=== PATIENT | female | born 1955 | race Caucasian/White ===

== ENCOUNTER → 2016-11-15 17:23 | Outpatient (CLI) | payer OTHER | END | disposition home or self-care (01) | LOC: D.MAMMO 11-12 09:00 | DX: N60.22 Fibroadenosis of left breast (principal) ==

== ENCOUNTER 2017-11-29 06:53 | Emergency (ER) | payer OTHER ==
[2017-11-30 09:22] VITALS: BMI 22.0
== END 2017-11-29 08:24 | disposition home or self-care (01) ==
LOC: D.ER 06:53
DX: S39.012A Strain of muscle, fascia and tendon of lower back, initial encounter (principal); X58.XXXA Exposure to other specified factors, initial encounter; Y93.89 Activity, other specified; Y92.89 Other specified places as the place of occurrence of the external cause

== ENCOUNTER 2017-11-30 08:48 | Inpatient (IN) | payer OTHER ==
[~2017-11-30] VITALS: Ht 165.1 cm; Wt 61.8 kg
[2017-11-30] VITALS (19 sets, daily range): BP systolic 93–174; BP diastolic 38–87; Ht 165.1 cm; Wt 61.8 kg
--- NOTE | ~2017-11-30 | OP ---
PATIENT NAME: LYNDSAY LEIGH MEDICAL RECORD: [id number] :55 [id number] ADMISSION DATE:11/30/17 SURGEON: MAYNOR AL MD DATE OF OPERATION: 11/30/2017 PREOPERATIVE DIAGNOSES: Large disc herniation at C7-T1 on the left with severe degenerative disc disease and osteophyte formation and degenerative disc disease with disc herniation at C6-C7, left. PROCEDURE: LDR artificial cervical disc at C6-C7, Zavation cervical plate at C7-T1 with 4 screws, PEEK interbody cage, bone stem cell allograft, separate plate and screws was used to achieve the C7-T1 interspace. DESCRIPTION AND TECHNIQUE: After induction of general endotracheal anesthesia, the patient was positioned supine on the operating table. Neck was prepped and draped in usual sterile fashion. Fluoroscopic x-ray and freer localized the C6-C7 interspace. A transverse skin incision was carried out from the midline to the sternocleidomastoid muscle. The platysma was divided with Bovie cautery. Using blunt and sharp dissection with Metzenbaum scissors, I proceeded in an avascular plane medial to the carotid sheath. The C6-C7 interspace was identified with fluoroscopic x-ray and a spinal needle. The longus colli muscles were elevated from bodies of C6, C7 and T1, so a Zephyr distracting pins were placed in the body of C7 and T1. The annulus was incised with #11 blade. Series of curettes and pituitary rongeurs was used to remove the disc material from the disc space. Posterior longitudinal ligament was removed with Cloward rongeurs. In the left neural foramen, there was a large extruded disc fragment within the foramen compressing the left C8 nerve root. The foramen was further explored with a nerve hook with a ball tip probe. No other disc fragments were discovered. A PEEK interbody cage was placed into the space under distraction. Prior to this, it was filled with bone stem cells. Next, a separate 4-hole plate and screws was used to span the C5 and T1 interspace. Good position of the hardware was confirmed with fluoroscopic x-ray. Locking cams were tightened down over the screw heads. Next, attention was turned to the C6-C7 interspace. Zephyr pins were placed at the bodies of C6 and C7. The annulus was incised under distraction with a #11 blade and series of curettes and pituitary rongeurs were used to remove the disc material from the disc space. Dissection took place down the bony endplates with care not to interrupt any of the bony endplate. An osteophyte was drilled away posteriorly on the left with the Midas-Jeremy drill under microscope. The posterior longitudinal ligament was removed across the entire disc space. The dura was decompressed well. A medium-sized LDR anterior cervical disc was placed in the disc space under fluoroscopic control. Good position of the hardware was confirmed with fluoroscopic x-ray. Meticulous hemostasis was maintained throughout the wound. Wound was irrigated with copious amounts of Ancef irrigant solution. The platysma and subdermal layer were closed with interrupted 3-0 Vicryl suture. The skin was reapproximated with 5-0 subcuticular stitch. A Dermabond mesh was used to close the skin edges. TRANSINT:[id number] Voice Confirmation ID: [id number] DOCUMENT ID: [id number] OPERATIVE REPORT [id number] LYNDSAY LEIGH JOHN MD at 1318 CC: [id number] DICTATION DATE: 12/09/17 0904 BOND UNDERWRITER: 12/09/17 1502 DIS IN 12/01/17 [id number] [place] [id number]
[2017-11-30 09:11] LABS: BASOPHILS 0 % (0-2); EOSINOPHILS 0 % (0-7); HEMATOCRIT 42.1 % (36.0-48.0); IMMATURE GRANULOCYTES 0.3 % (0-5); LYMPHOCYTES 9.3 % (15-50); MCHC 33.3 g/dL (31.0-37.0); MCV 87.2 fL (80.0-100.0); MEAN PLATELET VOLUME 10.8 fL (7.4-10.4); MONOCYTES 5.3 % (2-11); NEUTROPHILS 85.1 % (40-80); PLATELET COUNT 247 10x3/uL (130-400); RBC 4.83 10x6/uL (4.00-5.40); RDW 14.1 % (11.5-14.5); WBC 12.5 10x3/uL (4.8-10.8)
[2017-11-30 09:20] LABS: ANION GAP 16.9 mmol/L (8-16); CALCIUM 9.7 mg/dL (8.5-10.1); CARBON DIOXIDE 26.1 mmol/L (21.0-32.0)
[2017-11-30 12:55] LABS: APPEARANCE CLEAR (CLEAR); BILIRUBIN NEGATIVE (NEGATIVE); COLOR YELLOW (YELLOW); GLUCOSE NEGATIVE (NEGATIVE); KETONE NEGATIVE (NEGATIVE); NITRITE NEGATIVE (NEGATIVE); PROTEIN NEGATIVE (NEGATIVE); UROBILINOGEN NORMAL (NORMAL)
[2017-12-01] VITALS (9 sets, daily range): BP systolic 88–112; BP diastolic 46–70
== END 2017-12-01 11:00 | disposition home or self-care (01) | DRG 473 ==
LOC: D.CVICU 08:48 → D.MS 10:00 → D.CVICU 12-01 11:00
PROVIDERS: Anesthesiology; Neurological Surgery
PROC: 0RG40A0 Fusion of Cervicothoracic Vertebral Joint with Interbody Fusion Device, Anterior Approach, Anterior Column, Open Approach (ICD-10-PCS; principal; 2017-11-30 10:00)
DX: M50.23 Other cervical disc displacement, cervicothoracic region (principal); M54.12 Radiculopathy, cervical region; M47.9 Spondylosis, unspecified; M25.78 Osteophyte, vertebrae

== ENCOUNTER → 2018-01-07 16:36 | Outpatient (CLI) | payer OTHER ==
[2017-11-30 09:22] VITALS: BMI 22.0
== END | disposition home or self-care (01) ==
LOC: D.MAMMO 09:00
DX: Z12.31 Encounter for screening mammogram for malignant neoplasm of breast (principal)

== ENCOUNTER → 2019-02-12 17:11 | Outpatient (CLI) | payer OTHER ==
[2017-11-30 09:22] VITALS: BMI 22.0
== END | disposition home or self-care (01) ==
LOC: D.MAMMO 14:15
PROVIDERS: ATTEND Obstetrics & Gynecology
DX: Z12.31 Encounter for screening mammogram for malignant neoplasm of breast (principal)

== ENCOUNTER → 2019-02-25 16:41 | Outpatient (CLI) | payer OTHER ==
[2017-11-30 09:22] VITALS: BMI 22.0
== END | disposition home or self-care (01) ==
LOC: D.MAMMO 15:00
PROVIDERS: ATTEND Obstetrics & Gynecology
DX: R92.8 Other abnormal and inconclusive findings on diagnostic imaging of breast (principal); Z80.3 Family history of malignant neoplasm of breast

== ENCOUNTER 2019-08-24 09:26 | Emergency (ER) | payer OTHER ==
[~2019-08-24] VITALS: Ht 165.1 cm; Wt 62.7 kg
[2019-08-24 09:27] VITALS: Ht 165.1 cm; Wt 62.7 kg
[2019-08-24] MEDS ORDERED: AMOXICILLIN500 M1 PO (09:31)
[2019-08-24 12:15] VITALS: BP 111/65
== END 2019-08-24 12:16 | disposition home or self-care (01) ==
LOC: D.ER 09:26
DX: M54.5 Low back pain (principal)

== ENCOUNTER → 2019-10-07 15:32 | Outpatient (CLI) | payer OTHER ==
[2019-08-24 09:27] VITALS: BMI 23.0
[~2019-10-07 15:32] MED LIST: AMOXICILLIN500 M1 PO
== END | disposition home or self-care (01) ==
LOC: D.CT 15:30
PROVIDERS: ATTEND Clinical Nurse Specialist Family Health
DX: M25.552 Pain in left hip (principal)

== ENCOUNTER → 2020-04-12 19:03 | Outpatient (CLI) | payer OTHER ==
[2019-08-24 09:27] VITALS: BMI 23.0
== END | disposition home or self-care (01) ==
LOC: D.MAMMO 10:00
PROVIDERS: ATTEND Obstetrics & Gynecology
DX: Z12.31 Encounter for screening mammogram for malignant neoplasm of breast (principal)

== ENCOUNTER 2021-04-12 09:00 | Outpatient (CLI) | payer OTHER ==
[2019-08-24 09:27] VITALS: BMI 23.0
== END 2021-04-12 09:30 | disposition home or self-care (01) ==
LOC: D.MAMMO 09:00
PROVIDERS: ATTEND Surgery
DX: Z12.31 Encounter for screening mammogram for malignant neoplasm of breast (principal)